=== PATIENT | male | born 1995 | race African-American/Black ===

== ENCOUNTER 2017-07-10 14:11 | Emergency (ER) | payer OTHER ==
[~2017-07-10] VITALS: Ht 160 cm; Wt 55.9 kg
[~2017-07-10 14:11] MED LIST: MOTRIN600 MG PO
[2017-07-10 15:19] VITALS: BP 135/74
== END 2017-07-10 15:20 | disposition home or self-care (01) ==
LOC: EME 14:11
DX: S00.93XA Contusion of unspecified part of head, initial encounter (principal); S60.221A Contusion of right hand, initial encounter; Y04.2XXA Assault by strike against or bumped into by another person, initial encounter
CPT/HCPCS: 73130; 99281; 99284

== ENCOUNTER 2017-10-29 17:21 | Emergency (ER) | payer OTHER ==
[~2017-10-29] VITALS: Ht 160 cm; Wt 57.9 kg
[2017-10-29 18:21] VITALS: BP 118/74
== END 2017-10-29 19:19 | disposition home or self-care (01) ==
LOC: EME 17:21
DX: R10.9 Unspecified abdominal pain (principal); Z53.21 Procedure and treatment not carried out due to patient leaving prior to being seen by health care provider
CPT/HCPCS: 80053; 81003; 83690; 85027

== ENCOUNTER 2017-11-21 09:05 | Emergency (ER) | payer OTHER ==
[~2017-11-21] VITALS: Ht 160 cm; Wt 58.9 kg
[2017-11-21 09:35] LABS: HEMOGLOBIN 15.2 G/DL (12.5-16.6); MCH 30.7 PG (29.0-34.0); MCHC 34.5 G/DL (30.0-36.0); MCV 88.9 FL (86-99); PLATELET COUNT 333 K/uL (156-360); RBC DIS.WIDTH-CV 11.4 % (11.8-14.6); RBC DIS.WIDTH-SD 36.7 % (39-53); RED BLOOD COUNT 4.95 M/uL (4.00-5.50); WHITE BLOOD COUNT 5.1 K/uL (4.1-10.2)
[2017-11-21 09:45] LABS: ALBUMIN 4.6 g/dL (3.2-4.8); CHLORIDE 104 mEq/L (99-109); POTASSIUM 4.2 mEq/L (3.7-5.4); SODIUM 140 mEq/L (136-147)
[2017-11-21 09:48] LABS: GLUCOSE 115 mg/dL (70-99); TOTAL PROTEIN 7.6 g/dL (6.4-8.3)
[2017-11-21 09:51] LABS: ALKALINE PHOSPHATASE 97 IU/L (3-129); CREATININE 1.3 mg/dL (0.6-1.3); GFR ESTIMATE (CALCULATED) > 59 mL/min/ (58.99-99999); TOTAL BILIRUBIN 0.7 mg/dL (0.0-1.0)
[2017-11-21 09:53] LABS: AST (GOT) 26 IU/L (2-34); UREA NITROGEN (BUN) 9 mg/dL (9-23)
[2017-11-21 09:54] LABS: ALT (GPT) 20 IU/L (3-49)
[2017-11-21 10:04] LABS: LIPASE 30 U/L (1.0-51.0)
[2017-11-21 10:13] LABS: APPEARANCE SL.HAZY ((CLEAR)); BILIRUBIN NEGATIVE; BLOOD NEGATIVE; COLOR YELLOW ((YELLOW)); GLUCOSE (STRIP) NEGATIVE; KETONES NEGATIVE; LEUKOCYTES TRACE; NITRITE NEGATIVE; PROTEIN (STRIP) 30; SPECIFIC GRAVITY 1.025 (1.000-1.030)
[2017-11-21 10:28] LABS: BACTERIA 1+ /HPF; CALCIUM OXALATE CRYSTALS 2+ /HPF; EPITHELIAL CELLS NONE SEEN /HPF; MUCUS 2+ /LPF; RED BLOOD CELLS 0-5 /HPF (0-5); UCUL ADDED? YES; WHITE BLOOD CELLS 30-40 /HPF (0-5)
[2017-11-21] MEDS ORDERED: CHLORPROMAZINE25 MG PO (11:43)
[2017-11-21 12:04] VITALS: BP 134/82
== END 2017-11-21 12:04 | disposition home or self-care (01) ==
LOC: EME 09:05
DX: R06.6 Hiccough (principal); R10.13 Epigastric pain; F17.200 Nicotine dependence, unspecified, uncomplicated
CPT/HCPCS: 71046; 80053; 81003; 83690; 85027; 87086; 99281; 99284

== ENCOUNTER 2017-12-08 18:07 | Emergency (ER) | payer OTHER ==
[~2017-12-08] VITALS: Ht 162.6 cm; Wt 56.2 kg
[~2017-12-08 18:07] MED LIST changes: +CHLORPROMAZINE25 MG PO
[2017-12-08] MEDS ORDERED: CHILDREN'S160 MG/11 PO (21:12)
[2017-12-08] MEDS ORDERED: VALIUM5 MG PO (21:12)
[2017-12-08 21:29] VITALS: BP 118/65
== END 2017-12-08 21:30 | disposition home or self-care (01) ==
LOC: EME 18:07
DX: R06.6 Hiccough (principal); R10.9 Unspecified abdominal pain; R06.02 Shortness of breath; F17.200 Nicotine dependence, unspecified, uncomplicated; F12.90 Cannabis use, unspecified, uncomplicated
CPT/HCPCS: 71046; 99281; 99284